=== PATIENT | female | born 1985 | race Caucasian/White ===

== ENCOUNTER 2017-08-06 03:55 | Emergency (ER) | payer BC, MEDICAID ==
[2017-08-06] MEDS ORDERED: NORMAL SALINE 1000 ML 1,000 ML IV ONE ×2 (04:11→04:19)
[2017-08-06] MEDS ORDERED: NORMAL SALINE 1000 ML 1,000 ML IV PRN (04:11)
[2017-08-06] MEDS ORDERED: KETOROLAC TROMETHAMINE INJ/PF 30 MG/1 ML SDV IV ONE (04:35)
[2017-08-06 04:54] LABS: ABSOLUTE LYMPHOCYTES (AUTO) 0.9 10^3/uL (0.5-4.7); ABSOLUTE MONOCYTES (AUTO) 0.2 10^3/uL (0.1-1.4); BASOPHILS % (AUTO) 0.6 % (0-2); EOSINOPHILS % (AUTO) 1.3 % (0-6); HEMATOCRIT 39.7 % (36.0-47.0); HEMOGLOBIN 13.3 g/dL (12.0-15.5); LYMPHOCYTES % (AUTO) 28.4 % (13-45); MEAN CORPUSCULAR HEMOGLOBIN 29.1 pg (27.0-33.4); MEAN CORPUSCULAR HGB CONC 33.5 g/dL (32.0-36.0); MEAN CORPUSCULAR VOLUME 87 fl (80-97); MONOCYTES % (AUTO) 7.4 % (3-13); PLATELET COUNT 157 10^3/uL (150-450); RED BLOOD COUNT 4.58 10^6/uL (3.72-5.28); RED CELL DISTRIBUTION WIDTH 13.5 % (11.5-14.0); SEGMENTED NEUTROPHILS % (AUTO) 62.3 % (42-78); TOTAL CELLS COUNTED % (AUTO) 100 %; VENOUS BLOOD BASE EXCESS 0.9 mmol/L; VENOUS BLOOD HCO3 26.6 mmol/L (20-32); VENOUS BLOOD PCO2 46.7 mmHg (35-63); VENOUS BLOOD PH 7.37 (7.30-7.42); WHITE BLOOD COUNT 3.2 10^3/uL (4.0-10.5)
[2017-08-06 05:22] LABS: ALANINE AMINOTRANSFERASE 89 U/L (9-52); ALBUMIN 4.4 g/dL (3.5-5.0); ALKALINE PHOSPHATASE 136 U/L (38-126); ANION GAP 12 (5-19); ASPARTATE AMINO TRANSFERASE 78 U/L (14-36); BILIRUBIN,DIRECT 0.1 mg/dL (0.0-0.4); BILIRUBIN,TOTAL 0.5 mg/dL (0.2-1.3); BLOOD UREA NITROGEN 11 mg/dL (7-20); CALCIUM 9.8 mg/dL (8.4-10.2); CARBON DIOXIDE 26 mmol/L (22-30); CHLORIDE 107 mmol/L (98-107); GLUCOSE 136 mg/dL (75-110); LIPASE 28.8 U/L (23-300); POTASSIUM 3.5 mmol/L (3.6-5.0); SODIUM 145.2 mmol/L (137-145); TOTAL PROTEIN 7.2 g/dL (6.3-8.2)
[2017-08-06 05:22] LABS: APPEARANCE,URINE CLOUDY; BILIRUBIN,URINE NEGATIVE (NEGATIVE); GLUCOSE, URINE 150 mg/dL (NEGATIVE); KETONES,URINE NEGATIVE (NEGATIVE); LEUKOCYTE ESTERASE,URINE LARGE (NEGATIVE); NITRITE,URINE NEGATIVE (NEGATIVE); PROTEIN,URINE 100 mg/dL (NEGATIVE); URINE SPECIFIC GRAVITY 1.028
[2017-08-06 05:27] LABS: COLOR,URINE DARK YELLOW
[2017-08-06] MEDS ORDERED: CEFTRIAXONE 1 GM/D5W RTU 1 GM/50 ML RTUPB IV ONE (05:48)
--- NOTE | 2017-08-06 05:59 | ER Document Report ---
ED General - General Chief Complaint: High Blood Sugar Stated Complaint: PAINFUL URINATION Time Seen by Provider: 08/06/17 04:11 TRAVEL OUTSIDE OF THE [place] IN LAST 30 DAYS: No - HPI Patient complains to provider of: Elevated blood sugars painful urination Notes: Patient coming in for elevated blood sugars painful urination. Patient states on insulin pump. Patient statesBlood sugars been spiking the 5-600 range last few days. Patient is see has not changed her regimen. Patient states that she thought initially had an issue of pump therefore will change pumps however continue to run high. Patient states started to have nausea along with dysuria therefore was concerned about possible DKA and underlying urinary tract infection which came into the ER for further evaluation. Upon my evaluation patient's Accu-Chek shows blood sugar less than 150. Patient resting comfortably no signs of significant pathology. Denies fevers chills vomiting denies any diarrhea recent travel denies any new medications. - Related Data Allergies/Adverse Reactions: No Known Allergies Allergy (Verified 09/06/15 19:40) Past Medical History - Social History Smoking Status: Never Smoker Frequency of alcohol use: None Family History: DM, Malignancy - thyroid Patient has suicidal ideation: No Patient has homicidal ideation: No Endocrine Medical History: Reports: Hx Diabetes Mellitus Type 1 Renal/ Medical History: Denies: Hx Peritoneal Dialysis Psychiatric Medical History: Reports: Hx Attention Deficit Hyperactivity Disorder Past Surgical History: Reports: Hx Appendectomy, Hx Section - x2, Hx Gynecologic Surgery - lap x2, Hx Oral Surgery, Hx Orthopedic Surgery - r foot, Hx Tonsillectomy - Immunizations Hx Diphtheria, Pertussis, Tetanus Vaccination: Yes Review of Systems - Review of Systems Constitutional: Other - Elevated blood sugars EENT: No symptoms reported Cardiovascular: No symptoms reported Respiratory: No symptoms reported Gastrointestinal: Nausea Genitourinary: No symptoms reported Female Genitourinary: No symptoms reported Musculoskeletal: No symptoms reported Skin: No symptoms reported Hematologic/Lymphatic: No symptoms reported Neurological/Psychological: No symptoms reported -: Yes All other systems reviewed and negative Physical Exam - Vital signs Vitals: Temp Pulse Resp BP Pulse Ox 97.7 F 131 H 18 120/81 99 08/06/17 04:02 08/06/17 04:02 08/06/17 04:02 08/06/17 04:02 08/06/17 04:02 Interpretation: Normal - General General appearance: Appears well, Alert - HEENT Head: Normocephalic, Atraumatic Eyes: Normal Pupils: PERRL - Respiratory Respiratory status: No respiratory distress Chest status: Nontender Breath sounds: Normal Chest palpation: Normal - Cardiovascular Rhythm: Regular Heart sounds: Normal auscultation Murmur: No - Abdominal Inspection: Normal Distension: No distension Bowel sounds: Normal Tenderness: Nontender Organomegaly: No organomegaly - Back Back: Normal, Nontender - Extremities General upper extremity: Normal inspection, Nontender, Normal color, Normal ROM , Normal temperature General lower extremity: Normal inspection, Nontender, Normal color, Normal ROM , Normal temperature, Normal weight bearing. No: Bharati's sign - Neurological Neuro grossly intact: Yes Cognition: Normal Orientation: AAOx4 [place] Coma Scale Eye Opening: Spontaneous [place] Coma Scale Verbal: Oriented [place] Coma Scale Motor: Obeys Commands [place] Coma Scale Total: 15 Speech: Normal Motor strength normal: LUE, RUE, LLE, RLE Sensory: Normal - Psychological Associated symptoms: Normal affect, Normal mood - Skin Skin Temperature: Warm Skin Moisture: Dry Skin Color: Normal Course - Re-evaluation Re-evalutation: 08/06/17 05:56 patient laboratory studies not show any signs of DKA. Patient's blood sugar is not severely elevated A1c is 10.8. Patient states that this is a decrease of 0.1 for her last A1c. Urinalysis does show signs of urinary tract infection patient will be given a dose of Rocephin will start the patient on Keflex patient is to follow-up with her supervisor marble PCP take medications as prescribed. Urine will be sent for culture. - Vital Signs Vital signs: Temp Pulse Resp BP Pulse Ox 97.7 F 131 H 17 116/79 100 08/06/17 04:02 08/06/17 04:02 08/06/17 05:01 08/06/17 05:00 08/06/17 05:01 - Laboratory Result Diagrams: 08/06/17 04:30 08/06/17 04:30 Laboratory results interpreted by me: 08/06/17 08/06/17 08/06/17 04:11 04:30 04:30 WBC 3.2 L Sodium 145.2 H Potassium 3.5 L Glucose 136 H POC Glucose 140 H Hemoglobin A1c % AST 78 H ALT 89 H Alkaline Phosphatase 136 H Urine Protein Urine Glucose (UA) Urine Blood Urine Urobilinogen Ur Leukocyte Esterase Urine Ascorbic Acid 08/06/17 08/06/17 04:30 04:45 WBC Sodium Potassium Glucose POC Glucose Hemoglobin A1c % 10.8 H AST ALT Alkaline Phosphatase Urine Protein 100 H Urine Glucose (UA) 150 H Urine Blood MODERATE H Urine Urobilinogen 4.0 H Ur Leukocyte Esterase LARGE H Urine Ascorbic Acid 20 H Discharge - Discharge Clinical Impression: Hyperglycemia UTI (urinary tract infection) Qualifiers: Urinary tract infection type: site unspecified Hematuria presence: without hematuria Qualified Code(s): N39.0 - Urinary tract infection, site not specified Condition: Good Disposition: HOME, SELF-CARE Instructions: Cephalexin ([facility]), Urinary Tract Infection ([facility]), Hyperglycemia ( [facility]) Additional Instructions: Please take antibiotics as prescribed. Please follow-up with your primary care physician and your supervisor marble for your blood sugars. Return to the ER for any complications. He may also take Tylenol Motrin for pain control. Prescriptions: Cephalexin Monohydrate [Keflex 500 mg Capsule] 500 mg PO QID 10 Days #40 capsule Referrals: GINETTE MURCIA FNP [Primary Care Provider] - Follow up in 1 week
[2017-08-06] MEDS ORDERED: CEFTRIAXONE INJ 1000 MG VIAL IV ONE (06:03)
[2017-08-06 07:05] VITALS: BP 113/93
== END 2017-08-06 07:00 | disposition home or self-care (01) ==
LOC: ER 03:55
DX: E10.65 Type 1 diabetes mellitus with hyperglycemia (principal); Z96.41 Presence of insulin pump (external) (internal); N39.0 Urinary tract infection, site not specified; R11.0 Nausea
CPT/HCPCS: 99285; 96361; 96375; 96365; 36415; 87086; 82962; 83690; 84703; 85025; 80053; 81001; 87186; 83036; 82803; J1885; J0696; J7030

== ENCOUNTER 2017-08-06 18:22 | Emergency (ER) | payer BC, MEDICAID ==
[2017-08-06] MEDS ORDERED: KETOROLAC TROMETHAMINE 60 MG/2 ML SDV IM ONE (19:04)
[2017-08-06 20:35] LABS: ABSOLUTE LYMPHOCYTES (AUTO) 0.8 10^3/uL (0.5-4.7); ABSOLUTE MONOCYTES (AUTO) 0.2 10^3/uL (0.1-1.4); ABSOLUTE NEUT (AUTO) 2.2 10^3/uL (1.7-8.2); BASOPHILS % (AUTO) 0.3 % (0-2); EOSINOPHILS % (AUTO) 0.8 % (0-6); HEMATOCRIT 39.9 % (36.0-47.0); HEMOGLOBIN 13.1 g/dL (12.0-15.5); LYMPHOCYTES % (AUTO) 24.5 % (13-45); MEAN CORPUSCULAR HEMOGLOBIN 28.9 pg (27.0-33.4); MEAN CORPUSCULAR HGB CONC 32.9 g/dL (32.0-36.0); MEAN CORPUSCULAR VOLUME 88 fl (80-97); MONOCYTES % (AUTO) 6.2 % (3-13); PLATELET COUNT 146 10^3/uL (150-450); RED BLOOD COUNT 4.54 10^6/uL (3.72-5.28); RED CELL DISTRIBUTION WIDTH 14.1 % (11.5-14.0); SEGMENTED NEUTROPHILS % (AUTO) 68.2 % (42-78); TOTAL CELLS COUNTED % (AUTO) 100 %; WHITE BLOOD COUNT 3.3 10^3/uL (4.0-10.5)
[2017-08-06 20:41] LABS: APPEARANCE,URINE SLIGHTLY-CLOUDY; BILIRUBIN,URINE NEGATIVE (NEGATIVE); COLOR,URINE YELLOW; GLUCOSE, URINE >=500 mg/dL (NEGATIVE); KETONES,URINE NEGATIVE (NEGATIVE); LEUKOCYTE ESTERASE,URINE TRACE (NEGATIVE); NITRITE,URINE NEGATIVE (NEGATIVE); PROTEIN,URINE NEGATIVE (NEGATIVE); URINE SPECIFIC GRAVITY 1.015
[2017-08-06 20:49] LABS: ALANINE AMINOTRANSFERASE 107 U/L (9-52); ALKALINE PHOSPHATASE 135 U/L (38-126); ANION GAP 12 (5-19); ASPARTATE AMINO TRANSFERASE 143 U/L (14-36); BILIRUBIN,DIRECT 0.1 mg/dL (0.0-0.4); BILIRUBIN,TOTAL 0.3 mg/dL (0.2-1.3); BLOOD UREA NITROGEN 9 mg/dL (7-20); CALCIUM 9.6 mg/dL (8.4-10.2); CARBON DIOXIDE 26 mmol/L (22-30); CHLORIDE 105 mmol/L (98-107); GLUCOSE 256 mg/dL (75-110); POTASSIUM 3.9 mmol/L (3.6-5.0); SODIUM 142.6 mmol/L (137-145); TOTAL PROTEIN 6.5 g/dL (6.3-8.2)
--- NOTE | 2017-08-06 21:41 | RADIOLOGY REPORT (SQ) ---
EXAM DESCRIPTION: CT LTD RENAL STONE PROTOCOL ON COMPLETED DATE/TIME: 08/06/2017 9:31 pm REASON FOR STUDY: flank pain 12/16/2012 COMPARISON: 12/16/2012 TECHNIQUE: CT scan of the abdomen and pelvis performed without intravenous or oral contrast. Images reviewed with lung, soft tissue, and bone windows. Reconstructed coronal and sagittal MPR images revi ewed. All images stored on PACS. All CT scanners at this facility use dose modulation, iterative reconstruction, and/or weight based d osing when appropriate to reduce radiation dose to as low as reasonably achievable (ALARA). [facility]: Dose Right [facility]: CareDose [facility]: Dose Right [facility]: Teradose 4D [facility]: [employer] RADIATION DOSE: CT Rad equipment meets quality standard of care and radiation dose reduction techniq ues were employed. CTDIvol: 9.0 mGy. DLP: 469 mGy-cm.mGy. LIMITATIONS: None. FINDINGS: LOWER CHEST: No significant findings. No nodules or infiltrates. NON-CONTRASTED LIVER, SPLEEN, ADRENALS: Evaluation limited by lack of IV contrast. No identified sign ificant masses. PANCREAS: No masses. No peripancreatic inflammatory changes. GALLBLADDER: No identified stones by CT criteria. No inflammatory changes to suggest cholecystitis. RIGHT KIDNEY AND URETER: No suspicious masses. Assessment limited by lack of IV contrast. No signif icant calcifications. No hydronephrosis or hydroureter. LEFT KIDNEY AND URETER: No suspicious masses. Assessment limited by lack of IV contrast. No signifi cant calcifications. No hydronephrosis or hydroureter. AORTA AND RETROPERITONEUM: No aneurysm. No retroperitoneal masses or adenopathy. BOWEL AND PERITONEAL CAVITY: No obvious masses or inflammatory changes. No free fluid. APPENDIX: Normal. PELVIS, BLADDER, AND ABDOMINAL WALL:No abnormal masses. No free fluid. Bladder normal. BONES: No significant findings. OTHER: No other significant finding. IMPRESSION: NO SIGNIFICANT OR ACUTE PROCESS IN THE ABDOMEN OR PELVIS. COMMENT: Quality ID # [id number]: Final reports with documentation of one or more dose reduction techniques (e.g., Automated exposure control, adjustment of the mA and/or kV according to patient size, use of iterative reconstruction technique) TECHNICAL DOCUMENTATION: JOB ID: [id number] [employer]- All Rights Reserved
[2017-08-06] MEDS ORDERED: CEFTRIAXONE INJ 1000 MG VIAL IM ONE (22:52)
[2017-08-06] MEDS ORDERED: LIDOCAINE 1% INJ-PF (10 MG/ML) 30 ML SDV INJ ONE (22:52)
[2017-08-06] MEDS ORDERED: ONDANSETRON ODT 4 MG TAB (6 TAB/ER DISP) PO PRN (22:53)
--- NOTE | 2017-08-06 22:54 | ER Document Report ---
ED General - General Chief Complaint: Urinary Problem Stated Complaint: ABDOMINAL PAIN Time Seen by Provider: 08/06/17 19:01 Notes: Patient is a 32-year-old female with a past medical history of insulin- dependent diabetes who presents with bilateral flank pain. Patient was seen approximately 24 hours ago in the emergency department and at that time diagnosed with a urinary tract infection based on urinalysis. Patient did receive a dose of IV ceftriaxone prior to discharge but has not yet filled the cephalexin prescription with which she was sent home. Patient states she became concerned when her symptoms went from dysuria and suprapubic pain to bilateral flank pain. She describes a dull, constant, aching pain to the bilateral flanks slightly worse than the right. Nothing improves or worsens that pain. She states this feels very similar to when she has had pyelonephritis in the past. She has not yet developed a fever, vomiting, or altered mental status. She reports that her blood sugars have been elevated at home but has not responded to boluses of insulin. She does not feel she is in diabetic ketoacidosis. She has not yet followed up with her primary care doctor regarding today's concerns. TRAVEL OUTSIDE OF THE [place] IN LAST 30 DAYS: No - Related Data Allergies/Adverse Reactions: No Known Allergies Allergy (Verified 08/06/17 18:23) Past Medical History - General Information source: Patient - Social History Smoking Status: Never Smoker Chew tobacco use (# tins/day): No Frequency of alcohol use: None Drug Abuse: None Lives with: Spouse/Significant other Family History: DM, Malignancy - thyroid Patient has suicidal ideation: No Patient has homicidal ideation: No Endocrine Medical History: Reports: Hx Diabetes Mellitus Type 1 Renal/ Medical History: Denies: Hx Peritoneal Dialysis Psychiatric Medical History: Reports: Hx Attention Deficit Hyperactivity Disorder Past Surgical History: Reports: Hx Appendectomy, Hx Section - x2, Hx Gynecologic Surgery - lap x2, Hx Oral Surgery, Hx Orthopedic Surgery - r foot, Hx Tonsillectomy - Immunizations Hx Diphtheria, Pertussis, Tetanus Vaccination: Yes Review of Systems - Review of Systems Notes: Constitutional: Negative for fever. HENT: Negative for sore throat. Eyes: Negative for visual changes. Cardiovascular: Negative for chest pain. Respiratory: Negative for shortness of breath. Gastrointestinal: Positive for bilateral flank pain Genitourinary: Positive for dysuria. Musculoskeletal: Negative for back pain. Skin: Negative for rash. Neurological: Negative for headaches, weakness or numbness. 10 point ROS negative except as marked above and in HPI. Physical Exam - Vital signs Vitals: Temp Pulse Resp BP Pulse Ox 98.7 F 107 H 16 111/73 100 08/06/17 18:45 08/06/17 18:45 08/06/17 18:45 08/06/17 18:45 08/06/17 18:45 Interpretation: Tachycardic Notes: PHYSICAL EXAMINATION: GENERAL: Well-appearing, well-nourished and in no acute distress. HEAD: Atraumatic, normocephalic. EYES: Pupils equal round and reactive to light, extraocular movements intact, sclera anicteric, conjunctiva are normal. ENT: nares patent, oropharynx clear without exudates. Moderately dry mucous membranes. NECK: Normal range of motion, supple without lymphadenopathy LUNGS: Breath sounds clear to auscultation bilaterally and equal. No wheezes rales or rhonchi. HEART: Regular rate and rhythm without murmurs ABDOMEN: Soft, nontender, normoactive bowel sounds. No guarding, no rebound. No masses appreciated. Bilateral CVA tenderness slightly worse on the right versus the left EXTREMITIES: Normal range of motion, no pitting or edema. No cyanosis. NEUROLOGICAL: No focal neurological deficits. Moves all extremities spontaneously and on command. PSYCH: Normal mood, normal affect. SKIN: Warm, Dry, normal turgor, no rashes or lesions noted. Course - Re-evaluation Re-evalutation: 08/06/17 22:52 Presentation is most consistent with acute pyelonephritis. Laboratories do demonstrate a large amount of white blood cells in the urine as well as bacteria. Patient has had constitutional symptoms at home as well but no fever. CVA tenderness is present on exam. The remainder laboratories are relatively unremarkable without evidence of renal dysfunction. No evidence of diabetic ketoacidosis. CT abdomen pelvis was obtained in triage for unclear reasons and is unremarkable. I do not suspect an acute appendicitis, biliary pathology, pancreatitis, intra-abdominal abscess, or tubo-ovarian abscess based on history and examination. Patient has been given a dose of ceftriaxone which is her second dose within the past 48 hours. She was prescribed cephalexin yesterday and I have encouraged her to fill this prescription as she has not yet done so and begin taking as prescribed. At this time will discharge with return precautions and follow-up recommendations. Verbal discharge instructions given a the bedside and opportunity for questions given. Medication warnings reviewed. Patient is in agreement with this plan and has verbalized understanding of return precautions and the need for primary care follow-up in the next 24-72 hours. - Vital Signs Vital signs: Temp Pulse Resp BP Pulse Ox 98.7 F 95 16 115/71 100 08/06/17 18:45 08/06/17 23:00 08/06/17 23:00 08/06/17 23:00 08/06/17 23:00 - Laboratory Result Diagrams: 08/06/17 20:15 08/06/17 20:15 Laboratory results interpreted by me: 08/06/17 08/06/17 08/06/17 20:15 20:15 20:15 WBC 3.3 L RDW 14.1 H Plt Count 146 L Glucose 256 H AST 143 H ALT 107 H Alkaline Phosphatase 135 H Urine Glucose (UA) >=500 H Urine Urobilinogen 2.0 H Ur Leukocyte Esterase TRACE H Urine Ascorbic Acid 20 H - Diagnostic Test Radiology reviewed: Reports reviewed Discharge - Discharge Clinical Impression: Pyelonephritis, Hyperglycemia Condition: Good Disposition: HOME, SELF-CARE Additional Instructions: You have been diagnosed with a condition called pyelonephritis which is an infection involving your kidneys and bladder. You have been given a dose of antibiotics here in the emergency department to help begin to treat this infection. Please take the antibiotics prescribed yesterday. Complete the course even if you feel better. Please return if you have persistent vomiting, pass out, have worsening pain, become unable to tolerate fluids, or have any other symptoms that are concerning to you. Please follow-up with your primary care physician in the next 24-48 hours. Referrals: GINETTE MURCIA FNP [Primary Care Provider] - Follow up as needed
[2017-08-06 23:55] VITALS: BP 115/71
== END 2017-08-06 23:30 | disposition home or self-care (01) ==
LOC: ER 18:22
DX: N12 Tubulo-interstitial nephritis, not specified as acute or chronic (principal); E10.65 Type 1 diabetes mellitus with hyperglycemia
CPT/HCPCS: 99284; 96372; 36415; 85025; 81025; 80053; 81001; 76380; J1885; J3490; J0696

== ENCOUNTER → 2017-11-13 | Outpatient (CLI) | payer MEDICAID ==
--- NOTE | 2017-11-13 14:14 | RADIOLOGY REPORT (SQ) ---
EXAM DESCRIPTION: CT ABD/PELVIS COMBO COMPLETED DATE/TIME: 11/13/2017 1:44 pm REASON FOR STUDY: R10.32 LEFT LOWER QUADRANT PAIN R10.32 LEFT LOWER QUADRANT PAIN COMPARISON: CT abdomen pelvis 08/06/2017, 12/15/2012 TECHNIQUE: CT scan of the abdomen and pelvis performed with and without intravenous contrast, and wi thout oral contrast. Contrasted imaging performed helical scanning technique and dynamic intravenous contrast injection. Images reviewed with lung, soft tissue, and bone windows. Reconstructed coronal a nd sagittal MPR images reviewed. Delayed images for evaluation of the urinary system also acquired. A ll images stored on PACS. All CT scanners at this facility use dose modulation, iterative reconstruction, and/or weight based d osing when appropriate to reduce radiation dose to as low as reasonably achievable (ALARA). [facility]: Dose Right [facility]: CareDose [facility]: Dose Right [facility]: Teradose 4D [facility]: [employer] CONTRAST TYPE AND DOSE: contrast/concentration: Isovue 370.00 mg/ml; Total Contrast Delivered: 79.0 ml; Total Saline Delivered: 68.0 ml RENAL FUNCTION: Creatinine 0.7 RADIATION DOSE: CT Rad equipment meets quality standard of care and radiation dose reduction techniq ues were employed. CTDIvol: 9.8 - 10.2 mGy. DLP: 1648 mGy-cm. . LIMITATIONS: None. FINDINGS: NON-CONTRASTED IMAGING: No significant renal or bladder calcifications. No other significa nt organ calcifications. POST-CONTRASTED IMAGING: LOWER CHEST: No significant findings. No nodules or infiltrates. LIVER: Normal size. No masses. No dilated ducts. SPLEEN: 14 cm in length, similar compared to 2012 PANCREAS: No masses. No significant calcifications. No adjacent inflammation or peripancreatic fluid collections. Pancreatic duct not dilated. GALLBLADDER: No identified stones by CT criteria. No inflammatory changes to suggest cholecystitis. ADRENAL GLANDS: No significant masses or asymmetry. RIGHT KIDNEY AND URETER: No solid masses. No significant calcifications. No hydronephrosis or hyd roureter. LEFT KIDNEY AND URETER: No solid masses. No significant calcifications. No hydronephrosis or hydr oureter. AORTA AND VESSELS: No aneurysm. No dissection. Renal arteries, SMA, celiac without stenosis. RETROPERITONEUM: No retroperitoneal adenopathy, hemorrhage or masses. BOWEL AND PERITONEAL CAVITY: No masses or inflammatory changes. No free fluid or peritoneal masses. APPENDIX: Surgically absent PELVIS: No mass. No free fluid. Normal bladder. Normal size uterus and ovaries ABDOMINAL WALL: No masses. No hernias. BONES: No significant or acute findings. OTHER: No other significant finding. IMPRESSION: No CT findings to explain history of left lower quadrant pain. TECHNICAL DOCUMENTATION: JOB ID: [id number] Quality ID # [id number]: Final reports with documentation of one or more dose reduction techniques (e.g., Au tomated exposure control, adjustment of the mA and/or kV according to patient size, use of iterative reconstruction technique) 2010 [employer]- All Rights Reserved Reading location - IP/workstation name: [email or web address]
== END ==
LOC: RAD 13:50
PROVIDERS: ATTEND Physician Assistant Medical
DX: R10.32 Left lower quadrant pain (principal)
CPT/HCPCS: 74178; 82565

== ENCOUNTER 2017-11-25 18:17 | Emergency (ER) | payer MEDICAID ==
--- NOTE | 2017-11-25 18:54 | ER Document Report ---
ED General - General Chief Complaint: Urinary Problem Stated Complaint: URINARY PROBLEMS Time Seen by Provider: 11/25/17 18:34 Mode of Arrival: Ambulatory Information source: Patient Notes: 32-year-old female presents with complaints of UTI-like symptoms for the past month. Patient notes initially she placed herself on Keflex took a course of this with minimal improvement saw her PCP who placed her on ciprofloxacin she notes she took 5 days worth symptoms improved so she stopped taking it, patient also noted to have bacterial vaginosis has just picked up the clindamycin gel TRAVEL OUTSIDE OF THE [place] IN LAST 30 DAYS: No - HPI Onset: Other - 1 month duration intermittent worsened over the past day Onset/Duration: Intermittent Quality of pain: Burning Severity: Mild Pain Level: 1 Associated symptoms: Other Exacerbated by: Denies Relieved by: Other - Clindamycin Similar symptoms previously: Yes Recently seen / treated by doctor: Yes - Related Data Allergies/Adverse Reactions: No Known Allergies Allergy (Verified 11/25/17 18:44) Past Medical History - General Last Menstrual Period: 11-20-2017 - Social History Smoking Status: Never Smoker Cigarette use (# per day): No Chew tobacco use (# tins/day): No Smoking Education Provided: No Frequency of alcohol use: None Drug Abuse: None Family History: DM, Malignancy Patient has suicidal ideation: No Patient has homicidal ideation: No Endocrine Medical History: Reports: Hx Diabetes Mellitus Type 1 Renal/ Medical History: Denies: Hx Peritoneal Dialysis Psychiatric Medical History: Reports: Hx Attention Deficit Hyperactivity Disorder Past Surgical History: Reports: Hx Appendectomy, Hx Section - x2, Hx Gynecologic Surgery - lap x2, Hx Oral Surgery, Hx Orthopedic Surgery - r foot, Hx Tonsillectomy - Immunizations Hx Diphtheria, Pertussis, Tetanus Vaccination: Yes Review of Systems - Review of Systems Notes: REVIEW OF SYSTEMS: CONSTITUTIONAL : Denies fever, chills, or sweats. Denies recent illness. EENT: Denies eye, ear, throat, or mouth pain or symptoms. Denies nasal or sinus congestion or discharge. Denies throat, tongue, or mouth swelling or difficulty swallowing. CARDIOVASCULAR: Denies chest pain. Denies palpitations or racing or irregular heart beat. Denies ankle edema. RESPIRATORY: Denies cough, cold, or chest congestion. Denies shortness of breath, difficulty breathing, or wheezing. GASTROINTESTINAL: Denies abdominal pain or distention. Denies nausea, vomiting , or diarrhea. Denies blood in vomitus, stools, or per rectum. Denies black, tarry stools. Denies constipation. GENITOURINARY: Admits to difficulty urinating burning on urination red colorization FEMALE GENITOURINARY: Denies vaginal bleeding, heavy or abnormal periods, irregular periods. Denies vaginal discharge or odor. MUSCULOSKELETAL: Denies back or neck pain or stiffness. Denies joint pain or swelling. SKIN: Denies rash, lesions or sores. HEMATOLOGIC : Denies easy bruising or bleeding. LYMPHATIC: Denies swollen, enlarged glands. NEUROLOGICAL: Denies confusion or altered mental status. Denies passing out or loss of consciousness. Denies dizziness or lightheadedness. Denies headache. Denies weakness or paralysis or loss of use of either side. Denies problems with gait or speech. Denies sensory loss, numbness, or tingling. Denies seizures. PSYCHIATRIC: Denies anxiety or stress. Denies depression, suicidal ideation, or homicidal ideation. ALL OTHER SYSTEMS REVIEWED AND NEGATIVE. PHYSICAL EXAMINATION: GENERAL: Well-appearing, well-nourished and in no acute distress. HEAD: Atraumatic, normocephalic. EYES: Pupils equal round and reactive to light, extraocular movements intact, conjunctiva are normal. ENT: Nares patent, oropharynx clear without exudates. Moist mucous membranes. NECK: Normal range of motion, supple without lymphadenopathy LUNGS: Breath sounds clear to auscultation bilaterally and equal. No wheezes rales or rhonchi. HEART: Regular rate and rhythm without murmurs ABDOMEN: Soft, suprapubic tenderness upon palpation Female : deferred Musculoskeletal: Normal range of motion, no pitting or edema. No cyanosis. NEUROLOGICAL: Cranial nerves grossly intact. Normal speech, normal gait. Normal sensory, motor exams PSYCH: Normal mood, normal affect. SKIN: Warm, Dry, normal turgor, no rashes or lesions noted. Dictation was performed using [employer] voice recognition software Physical Exam - Vital signs Vitals: Temp Pulse Resp BP Pulse Ox 98.2 F 100 18 115/69 98 11/25/17 18:20 11/25/17 18:20 11/25/17 18:20 11/25/17 18:20 11/25/17 18:20 Course - Re-evaluation Re-evalutation: 11/25/17 18:55 Patient has probable UTI lab work pending she overall looks quite well the 11/25/17 19:33 Patient has pyelonephritis, continue taking the ciprofloxacin and I will start her on Macrobid as she has already taken Keflex 11/25/17 19:36 Patient overall looks well is in no significant distress will discharge home with extremely close follow-up and culture results After performing a Medical Screening Examination, I estimate there is LOW risk for ACUTE APPENDICITIS, BOWEL OBSTRUCTION, ACUTE CHOLECYSTITIS, PERFORATED DIVERTICULITIS, INCARCERATED HERNIA, PANCREATITIS, PELVIC INFLAMMATORY DISEASE, PERFORATED ULCER, ECTOPIC , or TUBO-OVARIAN ABSCESS, thus I consider the discharge disposition reasonable. Also, there is no evidence or peritonitis , sepsis, or toxicity. I have reevaluated this patient multiple times and no significant life threatening changes are noted. The patient and I have discussed the diagnosis and risks, and we agree with discharging home with close follow-up with the understanding that symptoms and presentations can change. We also discussed returning to the Emergency Department immediately if new or worsening symptoms occur. We have discussed the symptoms which are most concerning (e.g., bloody stool, fever, changing or worsening pain, vomiting) that necessitate immediate return. - Vital Signs Vital signs: Temp Pulse Resp BP Pulse Ox 98.2 F 100 18 115/69 98 11/25/17 18:20 11/25/17 18:20 11/25/17 18:20 11/25/17 18:20 11/25/17 18:20 - Laboratory Result Diagrams: 11/25/17 19:00 11/25/17 19:00 Laboratory results interpreted by me: 11/25/17 11/25/17 19:00 19:00 Plt Count 145 L Urine Protein >=500 H Urine Glucose (UA) 50 H Urine Ketones TRACE H Urine Blood LARGE H Urine Nitrite POSITIVE H Urine Urobilinogen 4.0 H Discharge - Discharge Clinical Impression: Pyelonephritis Condition: Stable Disposition: HOME, SELF-CARE Instructions: Pyelonephritis ([facility]) Prescriptions: Hydrocodone/Acetaminophen [[place] 5-325 mg Tablet] 1 tab PO Q6 #10 tablet Sulfamethoxazole/Trimethoprim [Bactrim Ds Tablet] 1 each PO BID #20 tablet Referrals: FRANKY HOANG PA-C [Primary Care Provider] - Follow up as needed
[2017-11-25 19:16] LABS: ABSOLUTE LYMPHOCYTES (AUTO) 0.8 10^3/uL (0.5-4.7); ABSOLUTE MONOCYTES (AUTO) 0.3 10^3/uL (0.1-1.4); ABSOLUTE NEUT (AUTO) 3.7 10^3/uL (1.7-8.2); BASOPHILS % (AUTO) 0.3 % (0-2); HEMATOCRIT 40.9 % (36.0-47.0); HEMOGLOBIN 13.8 g/dL (12.0-15.5); LYMPHOCYTES % (AUTO) 16.4 % (13-45); MEAN CORPUSCULAR HEMOGLOBIN 29.1 pg (27.0-33.4); MEAN CORPUSCULAR HGB CONC 33.7 g/dL (32.0-36.0); MEAN CORPUSCULAR VOLUME 86 fl (80-97); MONOCYTES % (AUTO) 5.6 % (3-13); PLATELET COUNT 145 10^3/uL (150-450); RED BLOOD COUNT 4.73 10^6/uL (3.72-5.28); SEGMENTED NEUTROPHILS % (AUTO) 76.7 % (42-78); TOTAL CELLS COUNTED % (AUTO) 100 %; WHITE BLOOD COUNT 4.8 10^3/uL (4.0-10.5)
[2017-11-25 19:23] LABS: APPEARANCE,URINE TURBID; BILIRUBIN,URINE NEGATIVE (NEGATIVE); GLUCOSE, URINE 50 mg/dL (NEGATIVE); KETONES,URINE TRACE mg/dL (NEGATIVE); LEUKOCYTE ESTERASE,URINE NEGATIVE (NEGATIVE); NITRITE,URINE POSITIVE (NEGATIVE); PROTEIN,URINE >=500 mg/dL (NEGATIVE); URINE SPECIFIC GRAVITY 1.033
[2017-11-25 19:27] LABS: COLOR,URINE ORANGE
[2017-11-25 19:33] LABS: ALANINE AMINOTRANSFERASE 41 U/L (9-52); ALBUMIN 3.9 g/dL (3.5-5.0); ALKALINE PHOSPHATASE 107 U/L (38-126); ANION GAP 8 (5-19); ASPARTATE AMINO TRANSFERASE 38 U/L (14-36); BILIRUBIN,TOTAL 0.9 mg/dL (0.2-1.3); BLOOD UREA NITROGEN 13 mg/dL (7-20); CALCIUM 9.6 mg/dL (8.4-10.2); CARBON DIOXIDE 29 mmol/L (22-30); CHLORIDE 104 mmol/L (98-107); GLUCOSE 195 mg/dL (75-110); POTASSIUM 4.1 mmol/L (3.6-5.0); SODIUM 140.8 mmol/L (137-145)
[2017-11-25 19:44] VITALS: BP 109/71
== END 2017-11-25 19:44 | disposition home or self-care (01) ==
LOC: ER 18:17
DX: N12 Tubulo-interstitial nephritis, not specified as acute or chronic (principal); N76.0 Acute vaginitis; B96.89 Other specified bacterial agents as the cause of diseases classified elsewhere; E10.9 Type 1 diabetes mellitus without complications
CPT/HCPCS: 36415; 80053; 81001; 81025; 85025; 87086; 99283

== ENCOUNTER 2017-12-23 02:20 | Emergency (ER) | payer MEDICAID ==
[2017-12-23 03:40] LABS: APPEARANCE,URINE SLIGHTLY-CLOUDY; BILIRUBIN,URINE NEGATIVE (NEGATIVE); COLOR,URINE AMBER; GLUCOSE, URINE 50 mg/dL (NEGATIVE); KETONES,URINE NEGATIVE (NEGATIVE); LEUKOCYTE ESTERASE,URINE NEGATIVE (NEGATIVE); NITRITE,URINE NEGATIVE (NEGATIVE); PROTEIN,URINE 30 mg/dL (NEGATIVE); URINE SPECIFIC GRAVITY 1.024
--- NOTE | 2017-12-23 03:50 | ER Document Report ---
ED GI/ - General Chief Complaint: Abdominal Pain Stated Complaint: ABDOMINAL, BACK PAIN Time Seen by Provider: 12/23/17 02:38 Notes: The patient is a 32-year-old female, past medical history prior episodes of left lower quadrant abdominal pain without etiology, presents with left lower quadrant abdominal pain after she said a resident at work accidentally hit her in the lower abdomen. Patient also frequently has urinary tract infections and is on Macrobid. She denies flank pain, nausea, vomiting, diarrhea, constipation , dysuria, vaginal discharge or back pain. TRAVEL OUTSIDE OF THE [place] IN LAST 30 DAYS: No - Related Data Allergies/Adverse Reactions: No Known Allergies Allergy (Verified 11/25/17 18:44) Past Medical History - General Information source: Patient - Social History Smoking Status: Unknown if Ever Smoked Family History: DM, Malignancy Endocrine Medical History: Reports: Hx Diabetes Mellitus Type 1 Renal/ Medical History: Denies: Hx Peritoneal Dialysis Psychiatric Medical History: Reports: Hx Attention Deficit Hyperactivity Disorder Past Surgical History: Reports: Hx Appendectomy, Hx Section - x2, Hx Gynecologic Surgery - lap x2, Hx Oral Surgery, Hx Orthopedic Surgery - r foot, Hx Tonsillectomy - Immunizations Hx Diphtheria, Pertussis, Tetanus Vaccination: Yes Review of Systems - Review of Systems Notes: REVIEW OF SYSTEMS: CONSTITUTIONAL: -fevers, -chills EENT: -eye pain, -difficulty swallowing, -nasal congestion CARDIOVASCULAR: -chest pain, -syncope. RESPIRATORY: -cough, -SOB GASTROINTESTINAL: +LLQ abdominal pain, -nausea, -vomiting, -diarrhea GENITOURINARY: -dysuria, -hematuria MUSCULOSKELETAL: -back pain, -neck pain SKIN: -rash or skin lesions. HEMATOLOGIC: -easy bruising or bleeding. LYMPHATIC: -swollen, enlarged glands. NEUROLOGICAL: -altered mental status or loss of consciousness, -headache, - neurologic symptoms PSYCHIATRIC: -anxiety, -depression. ALL OTHER SYSTEMS REVIEWED AND NEGATIVE. Physical Exam - Vital signs Vitals: Temp Pulse Resp BP Pulse Ox 98 F 99 18 112/72 99 12/23/17 02:25 12/23/17 02:25 12/23/17 02:25 12/23/17 02:25 12/23/17 02:25 - Notes Notes: PHYSICAL EXAMINATION: GENERAL: Well-appearing, well-nourished and in no acute distress. HEAD: Atraumatic, normocephalic. EYES: Pupils equal round and reactive to light, extraocular movements intact, sclera anicteric, conjunctiva are normal. ENT: nares patent, oropharynx clear without exudates. Moist mucous membranes. NECK: Normal range of motion, supple without lymphadenopathy LUNGS: Breath sounds clear to auscultation bilaterally and equal. No wheezes rales or rhonchi. HEART: Regular rate and rhythm without murmurs ABDOMEN: Soft, mild LLQ tenderness, normoactive bowel sounds. No guarding, no rebound. No masses appreciated. EXTREMITIES: Normal range of motion, no pitting or edema. No cyanosis. NEUROLOGICAL: Cranial nerves grossly intact. Normal speech, normal gait. Normal sensory and motor exams. PSYCH: Normal mood, normal affect. SKIN: Warm, Dry, normal turgor, no rashes or lesions noted. Course - Re-evaluation Re-evalutation: Patient appears well. A bedside FAST does not reveal any free fluid in her abdomen. Her urinalysis does not show signs of a urinary tract infection. Suspect an abdominal wall contusion from a work injury. Instructed her about using anti-inflammatories, heating pads and ice packs. Given very strict return precautions and she understands. - Vital Signs Vital signs: Temp Pulse Resp BP Pulse Ox 98 F 99 18 112/72 99 12/23/17 02:25 12/23/17 02:25 12/23/17 02:25 12/23/17 02:25 12/23/17 02:25 - Laboratory Laboratory results interpreted by me: 12/23/17 03:07 Urine Protein 30 H Urine Glucose (UA) 50 H Urine Blood SMALL H Urine Urobilinogen 4.0 H Discharge - Discharge Clinical Impression: Abdominal pain, left lower quadrant Abdominal contusion Qualifiers: Encounter type: initial encounter Qualified Code(s): S30.1XXA - Contusion of abdominal wall, initial encounter Condition: Stable Disposition: HOME, SELF-CARE Additional Instructions: ABDOMINAL PAIN: There are many causes of abdominal pain. Pain can mean a serious problem requiring surgery (such as appendicitis). It can also be an innocent problem that goes away on its own (such as a viral infection). Often, time must pass to determine the cause of pain. The physician does not feel that hospitalization is necessary, at present. Things may change within the next 24 hours. Call the doctor or come back for re- examination if any problems occur, such as: (1) Pain that becomes more severe, steady, or becomes concentrated in one specific area. Also, pain that is more severe with movement or coughing. (2) Vomiting that persists or becomes more frequent. (3) Blood in the vomitus, urine, or bowel movements. Blood in the stool may have a tarry or black appearance. (4) Shaking chills or fever greater than 100 degrees F. (5) The abdomen becomes more distended or swollen. (6) Bowel movements cease. (7) Failure to improve as expected. NORMAL EXAM AND WORKUP: At this time, your examination and workup show no significant abnormality. No significant abnormal physical findings are noted. All laboratory, EKG, and imaging (x-ray, CT scans, ultrasound) studies that were ordered show no significant abnormality. Although your examination and all studies that were ordered showed no significant abnormal finding, there are no examinations and no studies that are 100% accurate. There is always the possibility that some abnormality could exist and not be detected with physical examination or within the limits and capabilities of laboratory and other studies. You should return or follow up as you were instructed on your visit today for further evaluation if your symptoms do not resolve. FOLLOW-UP CARE: If you have been referred to a physician for follow-up care, call the physician s office for an appointment as you were instructed or within the next two days. If you experience worsening or a significant change in your symptoms, notify the physician immediately or return to the Emergency Department at any time for re-evaluation. FOLLOW-UP CARE: You should return for re-evaluation in 12 hours. This follow-up visit is important. If you are unable to return, or feel that the return visit is unnecessary, please call us. Contusion Your injury has resulted in a contusion -- a crushing of the deep tissues. No injury to important structures was detected during the physician's exam. Contusions vary in the amount of pain they cause, and in the length of time required for healing. Typically, the area will become bruised, and will remain painful to touch for two or three weeks. However, most patients are back to working and playing within a few days. After the initial period of rest and cold-packs, your symptoms (together with the doctor's recommendations) will determine how rapidly you can get back to full activity. Usually this means "do what feels okay, but don't do things that hurt." If re-examination was recommended, it's important to follow up as instructed. Call the doctor or return any time if pain increases, if swelling becomes severe, if you develop numbness or weakness in an injured extremity, or if any other alarming symptoms occur. Referrals: FRANKY HOANG PA-C [Primary Care Provider] - Follow up as needed
[2017-12-23 04:39] VITALS: BP 120/76
== END 2017-12-23 04:30 | disposition home or self-care (01) ==
LOC: ER 02:20
DX: S30.1XXA Contusion of abdominal wall, initial encounter (principal); W50.0XXA Accidental hit or strike by another person, initial encounter; Y92.129 Unspecified place in nursing home as the place of occurrence of the external cause; Y99.0 Civilian activity done for income or pay; E10.9 Type 1 diabetes mellitus without complications; Z87.440 Personal history of urinary (tract) infections
CPT/HCPCS: 81001; 81025; 99284

== ENCOUNTER 2018-02-02 12:51 | Emergency (ER) | payer MEDICAID ==
[2018-02-02 15:34] LABS: APPEARANCE,URINE SLIGHTLY-CLOUDY; BILIRUBIN,URINE NEGATIVE (NEGATIVE); COLOR,URINE AMBER; GLUCOSE, URINE NEGATIVE (NEGATIVE); KETONES,URINE NEGATIVE (NEGATIVE); LEUKOCYTE ESTERASE,URINE NEGATIVE (NEGATIVE); NITRITE,URINE POSITIVE (NEGATIVE); PROTEIN,URINE 100 mg/dL (NEGATIVE); URINE SPECIFIC GRAVITY 1.024
[2018-02-02] MEDS ORDERED: SULFAMETHOXAZOLE/TRIMETHOPRIM 800-160 MG TABLET PO ONE (16:32)
--- NOTE | 2018-02-02 16:33 | ER Document Report ---
ED General - General Chief Complaint: Urinary Problem Stated Complaint: BLOOD IN URINE Time Seen by Provider: 02/02/18 14:32 Mode of Arrival: Ambulatory Information source: Patient TRAVEL OUTSIDE OF THE [place] IN LAST 30 DAYS: No - HPI Notes: Patient is a 32-year-old female history of insulin-dependent diabetes presents with report of dysuria urgency and frequency that the patient's had for the last 3 days. She states that 3 days ago she had a negative urine specimen at her regular practitioner's office. She reports occasional nausea but no vomiting. She states her sugar was 315 this morning. The patient reports last menstrual period started on 01/30/18 and she is just now getting a small amount of vaginal bleeding. The patient reports a chronic long-standing history of pelvic pain left greater than right and she had a negative CT scan for the same on 11/13/17. 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 The patient reports no fever or chills. She denies any vomiting. No other vaginal discharge. No concern for STD. No significant back pain. No cough or congestion or chest pain. No other abnormal bleeding or bruising. - Related Data Allergies/Adverse Reactions: No Known Allergies Allergy (Verified 02/02/18 14:25) Past Medical History - General Information source: Patient - Social History Smoking Status: Never Smoker Chew tobacco use (# tins/day): No Frequency of alcohol use: Occasional Drug Abuse: None Lives with: Family Family History: Reviewed & Not Pertinent, DM, Malignancy Patient has suicidal ideation: No Patient has homicidal ideation: No Endocrine Medical History: Reports: Hx Diabetes Mellitus Type 1 Renal/ Medical History: Denies: Hx Peritoneal Dialysis Psychiatric Medical History: Reports: Hx Attention Deficit Hyperactivity Disorder Past Surgical History: Reports: Hx Appendectomy, Hx Section - x2, Hx Gynecologic Surgery - lap x2, Hx Oral Surgery, Hx Orthopedic Surgery - r foot, Hx Tonsillectomy - Immunizations Hx Diphtheria, Pertussis, Tetanus Vaccination: Yes Review of Systems - Review of Systems -: Yes All other systems reviewed and negative Physical Exam - Vital signs Vitals: Temp Pulse Resp BP Pulse Ox 98.1 F 104 H 18 114/71 98 02/02/18 13:02 02/02/18 13:02 02/02/18 13:02 02/02/18 13:02 02/02/18 13:02 - Notes Notes: PHYSICAL EXAMINATION: GENERAL: Well-appearing, well-nourished and in no acute distress. HEAD: Atraumatic, normocephalic. EYES: Pupils equal round and reactive to light, extraocular movements intact, conjunctiva are normal. ENT: Nares patent, oropharynx clear without exudates. Moist mucous membranes. NECK: Normal range of motion, supple without lymphadenopathy LUNGS: Breath sounds clear to auscultation bilaterally and equal. No wheezes rales or rhonchi. HEART: Regular rate and rhythm without murmurs ABDOMEN: Soft, nondistended abdomen. No guarding, no rebound. No masses appreciated. Very minimal suprapubic discomfort left slightly greater than right which patient states is chronic, but may be worse when she gets a UTI similar to today. Female : deferred Musculoskeletal: Normal range of motion, no pitting or edema. No cyanosis. NEUROLOGICAL: Cranial nerves grossly intact. Normal speech, normal gait. Normal sensory, motor exams PSYCH: Normal mood, normal affect. SKIN: Warm, Dry, normal turgor, no rashes or lesions noted. Course - Re-evaluation Re-evalutation: 02/02/18 16:31 Urinalysis was positive for UTI. Patient was given Bactrim by mouth. There is no clinical suggestion for pyelonephritis with no CVA tenderness. There is no evidence for ketosis or diabetic complication with a blood sugar of 115 there is no evidence for . - Vital Signs Vital signs: Temp Pulse Resp BP Pulse Ox 98.1 F 104 H 18 114/71 98 02/02/18 13:02 02/02/18 13:02 02/02/18 13:02 02/02/18 13:02 02/02/18 13:02 - Laboratory Laboratory results interpreted by id: 02/02/18 02/02/18 14:50 15:05 POC Glucose 115 H Urine Protein 100 H Urine Blood MODERATE H Urine Nitrite POSITIVE H Urine Urobilinogen 4.0 H Discharge - Discharge Clinical Impression: Urinary tract infection Qualifiers: Urinary tract infection type: acute cystitis Hematuria presence: with hematuria Qualified Code(s): N30.01 - Acute cystitis with hematuria Condition: Stable Disposition: HOME, SELF-CARE Instructions: Trimethoprim-Sulfa ([facility]), Urinary Tract Infection ([facility]) Additional Instructions: Drink plenty of fluids. Watch her blood sugars closely. Return to the emergency department in case of high fever, vomiting or severe pain. Prescriptions: Ondansetron [Zofran Odt 4 mg Tablet] 1 tab PO Q8HP PRN #10 tab.rapdis PRN Reason: For Nausea/Vomiting Phenazopyridine HCl [Pyridium 200 mg Tablet] 200 mg PO TID #15 tablet Sulfamethoxazole/Trimethoprim [Bactrim Ds Tablet] 1 each PO BID #16 tablet Forms: Return to Work Referrals: FRANKY HOANG PA-C [Primary Care Provider] - Follow up as needed
[2018-02-02 16:46] VITALS: BP 105/61
[2018-02-02 16:47] LABS: CHLAM PCR NOT DETECTED (NOT DETECT); GON PCR NOT DETECTED (NOT DETECT)
== END 2018-02-02 16:49 | disposition home or self-care (01) ==
LOC: ER 12:51
DX: N30.01 Acute cystitis with hematuria (principal); E10.9 Type 1 diabetes mellitus without complications; R11.0 Nausea; R10.2 Pelvic and perineal pain
CPT/HCPCS: 99283; 82962; 81025; 81001; 87491; 87591; J3490

== ENCOUNTER 2018-03-24 17:00 | Emergency (ER) | payer BC, MEDICAID ==
[2018-03-24 17:05] VITALS: BP 122/75
[2018-03-24] MEDS ORDERED: AMOXICILLIN TR/POT CLAVULANATE 500-125 MG TAB PO ONE (17:41)
[2018-03-24] MEDS ORDERED: DIPH/PERTUSS(ACELL)/TETANUS VAC/PF 0.5 ML SYR (>=10YO) IM ONE (17:42)
--- NOTE | 2018-03-24 17:45 | ER Document Report ---
HPI - HPI Patient complains to provider of: Puncture wound to toe Onset: Other - For 5 days ago Onset/Duration: Worse Quality of pain: Achy Pain Level: 2 Context: Patient states that her dog stepped on her foot about 4 5 days ago when she developed a puncture wound. Patient complains of increased tenderness to the area and concerns about infection. Patient is a diabetic. Associated Symptoms: Other - Puncture wound to foot Exacerbated by: Standing, Movement, Walking Relieved by: Denies Similar symptoms previously: No Recently seen / treated by doctor: No - ROS ROS below otherwise negative: Yes Systems Reviewed and Negative: Yes All other systems reviewed and negative - CONSTITUTIONAL Constitutional: DENIES: Fever - REPRODUCTIVE Reproductive: DENIES: : - MUSCULOSKELETAL Musculoskeletal: REPORTS: Extremity pain. 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 Lives with: Family Family History: Reviewed & Not Pertinent, DM, Malignancy Endocrine Medical History: Reports: Hx Diabetes Mellitus Type 1 Renal/ Medical History: Denies: Hx Peritoneal Dialysis Psychiatric Medical History: Reports: Hx Attention Deficit Hyperactivity Disorder Past Surgical History: Reports: Hx Appendectomy, Hx Section - x2, Hx Gynecologic Surgery - lap x2, Hx Oral Surgery, Hx Orthopedic Surgery - r foot, Hx Tonsillectomy - Immunizations Hx Diphtheria, Pertussis, Tetanus Vaccination: Yes Vertical Provider Document - CONSTITUTIONAL Agree With Documented VS: Yes Exam Limitations: No Limitations General Appearance: WD/WN, No Apparent Distress - INFECTION CONTROL TRAVEL OUTSIDE OF THE [place] IN LAST 30 DAYS: No - HEENT HEENT: Atraumatic - NECK Neck: Normal Inspection - RESPIRATORY Respiratory: No Respiratory Distress - CARDIOVASCULAR Pulses: Normal: Dorsalis pedis - MUSCULOSKELETAL/EXTREMETIES Musculoskeletal/Extremeties: MAEW - NEURO Level of Consciousness: Awake, Alert, Appropriate Motor/Sensory: No Motor Deficit - DERM Integumentary: Warm, Dry Notes: Patient with puncture wound to the dorsal aspect of left foot between first and second toes area tender to touch Course - Vital Signs Vital signs: Temp Pulse Resp BP Pulse Ox 97.5 F 92 16 122/75 99 03/24/18 17:04 03/24/18 17:04 03/24/18 17:04 03/24/18 17:04 03/24/18 17:04 Discharge - Discharge Clinical Impression: Puncture wound of foot Qualifiers: Encounter type: sequela Laterality: left Qualified Code(s): S91.332S - Puncture wound without foreign body, left foot, sequela Condition: Stable Disposition: HOME, SELF-CARE Instructions: Augmentin ([facility]), Puncture Wound ([facility]), Tetanus Immunization Given ([facility]) Additional Instructions: Return immediately for any new or worsening symptoms Followup with your primary care provider, call tomorrow to make a followup appointment Keep wound clean and covered while it continues to heal Prescriptions: Amox Tr/Potassium Clavulanate [Augmentin 875-125 Tablet] 1 tab PO BID 10 Days tablet Forms: Return to Work Referrals: GINETTE MURCIA FNP [NURSE PRACTITIONER] - Follow up as needed
== END 2018-03-24 18:22 | disposition home or self-care (01) ==
LOC: ER 17:00
DX: S91.332A Puncture wound without foreign body, left foot, initial encounter (principal); W54.1XXA Struck by dog, initial encounter; E10.9 Type 1 diabetes mellitus without complications
CPT/HCPCS: 99283; 90471; 90715; J3490

== ENCOUNTER 2018-03-25 13:47 | Emergency (ER) | payer MEDICAID ==
[2018-03-25] MEDS ORDERED: AMOXICILLIN TR/POT CLAVULANATE 500-125 MG TAB PO ONE ×2 (14:53→16:12)
[2018-03-25] MEDS ORDERED: PROMETHAZINE HCL 25 MG TABLET PO ONE (14:53)
--- NOTE | 2018-03-25 14:53 | ER Document Report ---
ED Medical Screen (RME) - General Chief Complaint: Knee Injury Stated Complaint: LEFT KNEE PAIN, NAUSEA Time Seen by Provider: 03/25/18 14:42 Mode of Arrival: Ambulatory Information source: Patient Notes: 32-year-old female with a history of insulin requiring diabetes who presents to the emergency room with left knee pain for months. Patient states that the knee pain is been getting worse. She also reports that she was seen yesterday for dog bite on the foot and was started on Augmentin. She reports she took yesterday's dose but is unable to get the prescription today. TRAVEL OUTSIDE OF THE [place] IN LAST 30 DAYS: No - HPI Onset: Last week Onset/Duration: Gradual Quality of pain: Dull Severity: Moderate Pain Level: 2 Associated Symptoms: denies: Chest pain, Fever, Shortness of breath Exacerbated by: Movement Relieved by: Denies Similar symptoms previously: Yes Recently seen / treated by doctor: Yes - Related Data Smoking: Non-smoker Frequency of alcohol use: None Drug Abuse: None Allergies/Adverse Reactions: No Known Allergies Allergy (Verified 03/25/18 13:58) Past Medical History - General Information source: Patient - Social History Cigarette use (# per day): No Chew tobacco use (# tins/day): No Frequency of alcohol use: None Drug Abuse: None Lives with: Family Family history: None - Past Medical History Cardiac Medical History: Reports: None Pulmonary Medical History: Reports: None Neurological Medical History: Reports: None Endocrine Medical History: Reports: Hx Diabetes Mellitus Type 1 Renal/ Medical History: Denies: Hx Peritoneal Dialysis Malignancy Medical History: Reports: None GI Medical History: Reports: None Musculoskeltal Medical History: Reports Hx Arthritis Psychiatric Medical History: Reports: Hx Attention Deficit Hyperactivity Disorder Past Surgical History: Reports: Hx Appendectomy, Hx Section - x2, Hx Gynecologic Surgery - lap x2, Hx Oral Surgery, Hx Orthopedic Surgery - r foot, Hx Tonsillectomy - Immunizations Hx Diphtheria, Pertussis, Tetanus Vaccination: Yes Review of Systems - Review of Systems Constitutional: denies: Chills, Fever EENT: No symptoms reported Cardiovascular: No symptoms reported Respiratory: No symptoms reported Gastrointestinal: No symptoms reported Genitourinary: No symptoms reported Female Genitourinary: No symptoms reported Musculoskeletal: See HPI Skin: No symptoms reported Hematologic/Lymphatic: No symptoms reported Neurological/Psychological: No symptoms reported Physical Exam - Vital signs Vitals: Temp Pulse Resp BP Pulse Ox 98.4 F 93 16 109/73 98 03/25/18 13:59 03/25/18 13:59 03/25/18 13:59 03/25/18 13:59 03/25/18 13:59 Notes: Physical exam: GENERAL: Patient is alert and oriented x3, no acute distress HEAD: Atraumatic, normocephalic. EYES: Pupils equal round and reactive to light, extraocular movements intact, sclera anicteric, conjunctiva are normal. ENT: Oropharynx clear without exudates. Moist mucous membranes. NECK: Normal range of motion, supple without obvious mass LUNGS: Breath sounds clear to auscultation bilaterally and equal. No wheezes rales or rhonchi. HEART: Regular rate and rhythm without murmurs, rubs or gallops. EXTREMITIES: Normal range of motion, no pitting or edema. No clubbing or cyanosis. NEUROLOGICAL: Left knee: There is no swelling on appearance of the left knee. There is no warmth or erythema or skin changes. She is Tender to palpation. She is got tenderness with range of motion. She states she has had tenderness of range of motion over the past year which is been gradually getting worse. Distal calf is nontender. Distal tib-fib is no skin changes. Left foot: Patient is a small abrasion to the first webspace that she says is from her dog. There is no obvious pus drainage or fluctuance. There is no a sending lymphatic streaks. PSYCH: Normal mood, normal affect. SKIN: Warm, Dry, normal turgor, no rashes or lesions noted. Course - Re-evaluation Re-evalutation: 03/25/18 16:20 I have had a long conversation with the patient. She has had a long history of left knee pain and has had one round of physical therapy. She has been seen for this in the past. X-rays show no bony injury. Clinically, the patient has no obvious signs of infection or swelling of the left knee. I did recommend she follow-up with her primary care doctor for an outpatient MRI. I recommended she follow-up with the primary care doctor tomorrow. Incidentally, she did get a small dog bite to the first webspace of the left foot. On reassessment, there is no evidence of infection. She was placed on prophylactic Augmentin and was given a tetanus shot in the ER yesterday. She states that she is not been able to get to the pharmacy today, so she was given Augmentin in the ER that would cover her for today. - Vital Signs Vital signs: Temp Pulse Resp BP Pulse Ox 98.4 F 93 16 109/73 98 03/25/18 13:59 03/25/18 13:59 03/25/18 13:59 03/25/18 13:59 03/25/18 13:59 - Diagnostic Test Radiology reviewed: Image reviewed, Reports reviewed - X-rays show no obvious bony injury Doctor's Discharge - Discharge Clinical Impression: Left knee pain Condition: Stable Disposition: HOME, SELF-CARE Additional Instructions: As we discussed, the x-rays show no bone pathology to the left knee. However, I do want you to follow-up with your primary care doctor for an outpatient MRI of the knee. I do recommend you follow-up also with an orthopedic surgeon (up with the name of one on the chart). Ambulate for crutches for symptomatic relief. Light duty at work for the next week. Return to the emergency room if the knee becomes red, hot, swollen or if you start getting fever (temperature 100.5) or increased pain. In regards to the dog bite you got yesterday: I do not see any significant infection at this point, so I do want you to certainly take those prophylactic antibiotics. Follow-up with your primary care doctor tomorrow. Forms: Special Work Note
--- NOTE | 2018-03-25 15:44 | RADIOLOGY REPORT (SQ) ---
EXAM DESCRIPTION: KNEE LEFT 3 VIEWS COMPLETED DATE/TIME: 03/25/2018 3:15 pm REASON FOR STUDY: left knee pain COMPARISON: None. NUMBER OF VIEWS: Three views left knee to include AP, lateral and tangential patellofemoral. LIMITATIONS: None. FINDINGS: There is no acute or significant bone, joint or soft tissue abnormality. OTHER: No other significant finding. IMPRESSION: NORMAL STUDY. TECHNICAL DOCUMENTATION: JOB ID: [id number] Reading location - IP/workstation name: [email or web address]
[2018-03-25] MEDS ORDERED: HYDROCODONE/ACETAMINOPHEN 5-325 MG TABLET PO ONE (16:10)
[2018-03-25 16:32] VITALS: BP 120/74
== END 2018-03-25 16:30 | disposition home or self-care (01) ==
LOC: ER 13:47
DX: M25.562 Pain in left knee (principal); S90.872A Other superficial bite of left foot, initial encounter; W54.0XXA Bitten by dog, initial encounter; E10.9 Type 1 diabetes mellitus without complications
CPT/HCPCS: 99283; 73562; J3490 ×2

== ENCOUNTER 2018-07-03 09:15 | Emergency (ER) | payer BC, MEDICAID ==
[2018-07-03 09:28] VITALS: BP 113/69
--- NOTE | 2018-07-03 09:38 | ER Document Report ---
ED Medical Screen (RME) - General Chief Complaint: Abdominal Pain Stated Complaint: COUGH,SORE THROAT Time Seen by Provider: 07/03/18 09:32 Notes: RAPID MEDICAL EVALUATION DISCLOSURE I have seen this patient as part of a Rapid Medical Evaluation and, if applicable, placed any initially appropriate orders. The patient will be seen and fully evaluated, including a full history and physical exam, by a provider (in Main ED or Fast Track) when a room becomes available. 33-year-old female here with complaints of cough congestion runny nose sore throat ongoing for the past 1 month. She has been using essential oils which has helped some. Yesterday she started to develop some lower abdominal pressure and burning with urination consistent with her previous episodes of UTI. She tried taking Percocet and Pyridium for the pain. She denies any flank/back pain nausea vomiting fevers chills. EXAM CTAB RRR Mild suprapubic TTP No peritoneal signs TRAVEL OUTSIDE OF THE [place] IN LAST 30 DAYS: No - Related Data Allergies/Adverse Reactions: No Known Allergies Allergy (Verified 07/03/18 09:16) Past Medical History - Social History Family history: None Endocrine Medical History: Reports: Hx Diabetes Mellitus Type 1 Renal/ Medical History: Denies: Hx Peritoneal Dialysis Musculoskeltal Medical History: Reports Hx Arthritis Psychiatric Medical History: Reports: Hx Attention Deficit Hyperactivity Disorder Past Surgical History: Reports: Hx Appendectomy, Hx Section - x2, Hx Gynecologic Surgery - lap x2, Hx Oral Surgery, Hx Orthopedic Surgery - r foot, Hx Tonsillectomy - Immunizations Hx Diphtheria, Pertussis, Tetanus Vaccination: Yes Physical Exam - Vital signs Vitals: Temp Pulse Resp BP Pulse Ox 97.5 F 88 16 113/69 100 07/03/18 09:21 07/03/18 09:21 07/03/18 09:21 07/03/18 09:21 07/03/18 09:21 Course - Vital Signs Vital signs: Temp Pulse Resp BP Pulse Ox 97.5 F 88 16 113/69 100 07/03/18 09:21 07/03/18 09:21 07/03/18 09:21 07/03/18 09:21 07/03/18 09:21 Doctor's Discharge - Discharge Referrals: GINETTE MURCIA FNP [Primary Care Provider] - Follow up as needed
[2018-07-03 10:11] LABS: APPEARANCE,URINE TURBID; BILIRUBIN,URINE NEGATIVE (NEGATIVE); COLOR,URINE AMBER; GLUCOSE, URINE 50 mg/dL (NEGATIVE); KETONES,URINE NEGATIVE (NEGATIVE); LEUKOCYTE ESTERASE,URINE MODERATE (NEGATIVE); NITRITE,URINE POSITIVE (NEGATIVE); PROTEIN,URINE 100 mg/dL (NEGATIVE); URINE SPECIFIC GRAVITY 1.024
--- NOTE | 2018-07-03 10:36 | ER Document Report ---
ED General - General Chief Complaint: Abdominal Pain Stated Complaint: COUGH,SORE THROAT Time Seen by Provider: 07/03/18 09:32 Notes: 33-year-old female here with complaints of cough congestion runny nose sore throat ongoing for the past 1 month. She has been using essential oils which has helped some. Yesterday she started to develop some lower abdominal pressure and burning with urination consistent with her previous episodes of UTI. She tried taking Percocet and Pyridium for the pain. She denies any flank/back pain nausea vomiting fevers chills. TRAVEL OUTSIDE OF THE [place] IN LAST 30 DAYS: No - Related Data Allergies/Adverse Reactions: No Known Allergies Allergy (Verified 07/03/18 09:16) Past Medical History - Social History Smoking Status: Never Smoker Chew tobacco use (# tins/day): No Frequency of alcohol use: None Drug Abuse: None Family History: Reviewed & Not Pertinent, DM, Malignancy Patient has suicidal ideation: No Patient has homicidal ideation: No Endocrine Medical History: Reports: Hx Diabetes Mellitus Type 1 Renal/ Medical History: Denies: Hx Peritoneal Dialysis Musculoskeletal Medical History: Reports Hx Arthritis Psychiatric Medical History: Reports: Hx Attention Deficit Hyperactivity Disorder Past Surgical History: Reports: Hx Appendectomy, Hx Section - x2, Hx Gynecologic Surgery - lap x2, Hx Oral Surgery, Hx Orthopedic Surgery - r foot, Hx Tonsillectomy - Immunizations Hx Diphtheria, Pertussis, Tetanus Vaccination: Yes Review of Systems - Review of Systems Notes: See history of present illness for pertinent positive review of systems; otherwise all review of systems have been reviewed and are negative Physical Exam - Vital signs Vitals: Temp Pulse Resp BP Pulse Ox 97.5 F 88 16 113/69 100 07/03/18 09:21 07/03/18 09:21 07/03/18 09:21 07/03/18 09:21 07/03/18 09:21 - Notes Notes: PHYSICAL EXAMINATION: GENERAL: Well-appearing and in no acute distress. HEAD: Atraumatic, normocephalic. EYES: Pupils equal round and reactive to light, extraocular movements intact, sclera anicteric, conjunctiva are normal. ENT: nares patent, oropharynx minimal erythema without tonsillar swelling exudates. Moist mucous membranes. NECK: Normal range of motion, supple without lymphadenopathy LUNGS: CTAB and equal. No wheezes rales or rhonchi. HEART: Regular rate and rhythm without murmurs ABDOMEN: Soft, mild suprapubic tenderness. No facial grimacing/wincing upon palpation. No guarding, no rebound. EXTREMITIES: Normal range of motion, no pitting edema. No cyanosis. NEUROLOGICAL: Cranial nerves grossly intact. Normal sensory/motor exams. PSYCH: Normal mood, normal affect. SKIN: Warm, Dry, normal turgor, no rashes or lesions noted Course - Re-evaluation Re-evalutation: 07/03/18 10:34 MEDICAL DECISION MAKING: Concern for upper respiratory infection, most likely viral Her urinalysis is concerning for UTI so will prescribe Augmentin for both UTI and URI Instructed patient on fever control with Tylenol and/or (if applicable) Motrin Also discussed keeping hydrated with water or Gatorade/Pedialyte Instructed follow-up PCP next day or few Patient understands and agrees to the plan of care - Vital Signs Vital signs: Temp Pulse Resp BP Pulse Ox 97.5 F 88 16 113/69 100 07/03/18 09:21 07/03/18 09:21 07/03/18 09:21 07/03/18 09:21 07/03/18 09:21 - Laboratory Laboratory results interpreted by me: 07/03/18 09:25 Urine Protein 100 H Urine Glucose (UA) 50 H Urine Blood LARGE H Urine Nitrite POSITIVE H Urine Urobilinogen 4.0 H Ur Leukocyte Esterase MODERATE H Discharge - Discharge Clinical Impression: URI, acute UTI (urinary tract infection) Qualifiers: Urinary tract infection type: site unspecified Hematuria presence: with hematuria Qualified Code(s): N39.0 - Urinary tract infection, site not specified; R31.9 - Hematuria, unspecified Condition: Good Disposition: HOME, SELF-CARE Additional Instructions: Finish the antibiotics prescribed for both UTI and upper respiratory infection. Use the cough medication as well on an as-needed basis. You were seen in the emergency department at [facility]. If you were given any sedating medications, be sure not to operate heavy machinery (example - driving) and be sure you are not too sedated to walk appropriately. Please followup with your primary physician in the next few days for further management/evaluation. Please return to the emergency department for worsening of symptoms or any symptom that you deem to be concerning or life-threatening. Thank you for allowing us to be part of your care. Prescriptions: Benzonatate [Tessalon Perles 100 mg Capsule] 100 mg PO Q8HP PRN #40 capsule PRN Reason: Amox Tr/Potassium Clavulanate [Augmentin 875-125 Tablet] 1 tab PO BID 10 Days tablet Referrals: GINETTE MURCIA FNP [Primary Care Provider] - Follow up as needed
== END 2018-07-03 10:58 | disposition home or self-care (01) ==
LOC: ER 09:15
DX: N39.0 Urinary tract infection, site not specified (principal); R31.9 Hematuria, unspecified; J06.9 Acute upper respiratory infection, unspecified; E10.9 Type 1 diabetes mellitus without complications
CPT/HCPCS: 81001; 81025; 87086; 87088; 87186; 99284

== ENCOUNTER 2018-10-02 19:43 | Emergency (ER) | payer BC, OTHER ==
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
[2018-10-02] MEDS ORDERED: ACETAMINOPHEN 325 MG TABLET PO ONE (22:57)
[2018-10-02 23:09] VITALS: BP 115/66
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
== END 2018-10-02 23:11 | disposition home or self-care (01) ==
LOC: ER 19:43
DX: M79.671 Pain in right foot (principal); M25.531 Pain in right wrist; X50.0XXA Overexertion from strenuous movement or load, initial encounter; Y92.009 Unspecified place in unspecified non-institutional (private) residence as the place of occurrence of the external cause; E10.39 Type 1 diabetes mellitus with other diabetic ophthalmic complication
CPT/HCPCS: 99283

== ENCOUNTER 2018-12-27 09:02 | Emergency (ER) | payer BC, OTHER ==
[2018-12-27 09:09] VITALS: BP 114/75
[2018-12-27] MEDS ORDERED: PHENAZOPYRIDINE HCL 200 MG TABLET PO ONE (09:29)
--- NOTE | 2018-12-27 09:34 | ER Document Report ---
ED GI/ - General Chief Complaint: Urinary Problem Stated Complaint: UTI SYMPTOMS Time Seen by Provider: 12/27/18 09:29 Primary Care Provider: GINETTE MURCIA FNP [Primary Care Provider] - Follow up as needed Mode of Arrival: Ambulatory Information source: Patient Notes: 33-year-old female presents to ED for bladder spasms, pelvic pain, burning with urination the last several days. She states she has had similar pelvic pain in the past and been to her primary doctor now she is waiting for surgical consult to determine the cause of the pelvic pain she is already had a transvaginal ultrasound and did not show any cause for the pain. She is a diabetic type I hypothyroid has had her tonsils removed and appendectomy x2 bone removed from the right foot diagnostic laparoscopies multiple removal of scar with one laparoscopy and neck surgery for slipped disc. 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 Patient is alert oriented respirations regular and unlabored speaking in full sentences walks with a even steady gait. TRAVEL OUTSIDE OF THE [place] IN LAST 30 DAYS: No - HPI Patient complains to provider of: Pelvic pain, Vaginal pain, Other Onset: Other - Urinary symptoms several days Timing/Duration: Gradual Quality of pain: Burning, Pressure Severity at maximum: Moderate Severity in ED: Moderate Pain Level: 3 Location: Pelvis Vaginal bleeding (Compared to normal period): None Associated symptoms: Urinary frequency, Urinary urgency, Other - Burning with urination and bladder spasms pelvic pain Exacerbated by: Walking - urination, Other Relieved by: Denies Similar symptoms previously: Yes Recently seen / treated by doctor: Yes - Related Data Allergies/Adverse Reactions: No Known Allergies Allergy (Verified 10/02/18 19:47) Past Medical History - General Information source: Patient - Social History Smoking Status: Never Smoker Cigarette use (# per day): No Chew tobacco use (# tins/day): No Smoking Education Provided: No Frequency of alcohol use: Rare Drug Abuse: None 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 Lives with: Family Family History: Reviewed & Not Pertinent, DM, Malignancy Patient has suicidal ideation: No Patient has homicidal ideation: No - Past Medical History Cardiac Medical History: Reports: None Pulmonary Medical History: Reports: None EENT Medical History: Reports: None Neurological Medical History: Reports: None Endocrine Medical History: Reports: Hx Diabetes Mellitus Type 1, Hx Hypothyroidism Renal/ Medical History: Reports: None Malignancy Medical History: Reports: None GI Medical History: Reports: None Musculoskeletal Medical History: Reports Hx Arthritis Skin Medical History: Reports None Psychiatric Medical History: Reports: Hx Attention Deficit Hyperactivity Disorder Traumatic Medical History: Reports: None Infectious Medical History: Reports: None Past Surgical History: Reports: Hx Appendectomy, Hx Section - x2, Hx Gynecologic Surgery - lap x2, Hx Oral Surgery, Hx Orthopedic Surgery - r foot, Hx Tonsillectomy - Immunizations Hx Diphtheria, Pertussis, Tetanus Vaccination: Yes Review of Systems - Review of Systems Constitutional: No symptoms reported EENT: No symptoms reported Cardiovascular: No symptoms reported Respiratory: No symptoms reported Gastrointestinal: No symptoms reported Genitourinary: No symptoms reported, Burning, Frequency, Pain, Urgency Female Genitourinary: No symptoms reported Musculoskeletal: No symptoms reported Skin: No symptoms reported Hematologic/Lymphatic: No symptoms reported Neurological/Psychological: No symptoms reported -: Yes All other systems reviewed and negative Physical Exam - Vital signs Vitals: Temp Pulse Resp BP Pulse Ox 97.7 F 96 16 114/75 99 12/27/18 09:06 12/27/18 09:06 12/27/18 09:06 12/27/18 09:06 12/27/18 09:06 Interpretation: Normal - General General appearance: Appears well, Alert - HEENT Head: Normocephalic, Atraumatic Eyes: Normal Pupils: PERRL - Respiratory Respiratory status: No respiratory distress Chest status: Nontender Breath sounds: Normal Chest palpation: Normal - Cardiovascular Rhythm: Regular Heart sounds: Normal auscultation Murmur: No - Abdominal Inspection: Normal Distension: No distension Bowel sounds: Normal Tenderness: Tender - Lower abdomen more to the left Organomegaly: No organomegaly - Back Back: Normal, Nontender - Extremities General upper extremity: Normal inspection, Nontender, Normal color, Normal ROM, Normal temperature General lower extremity: Normal inspection, Nontender, Normal color, Normal ROM, Normal temperature, Normal weight bearing. No: Bharati's sign - Neurological Neuro grossly intact: Yes Cognition: Normal Orientation: AAOx4 Frieda Coma Scale Eye Opening: Spontaneous Nevis Coma Scale Verbal: Oriented Frieda Coma Scale Motor: Obeys Commands Frieda Coma Scale Total: 15 Speech: Normal Motor strength normal: LUE, RUE, LLE, RLE Sensory: Normal - Psychological Associated symptoms: Normal affect, Normal mood - Skin Skin Temperature: Warm Skin Moisture: Dry Skin Color: Normal Course - Re-evaluation Re-evalutation: 12/27/18 10:38 Discussed the results of the urine with patient and written reports given to patient. Patient was instructed to follow-up with her primary doctor tomorrow to reevaluate her insulin and the effects is having when she works. Patient verbalized understanding and agreement with treatment plan patient was discharged home. Patient does not have a UTI. - Vital Signs Vital signs: Temp Pulse Resp BP Pulse Ox 97.7 F 96 16 114/75 99 12/27/18 09:06 12/27/18 09:06 12/27/18 09:06 12/27/18 09:06 12/27/18 09:06 - Laboratory Laboratory results interpreted by me: 12/27/18 09:40 Urine Glucose (UA) >=500 H Ur Leukocyte Esterase TRACE H Urine Ascorbic Acid 20 H Discharge - Discharge Clinical Impression: Pain with urination Condition: Stable Disposition: HOME, SELF-CARE Additional Instructions: You were seen today for pain with urination. You do not have a urinary tract infection at this time. There is too much sugar in your urine which will irritate your bladder. You need to drink more water and to take your insulin to reduce the amount of sugar you are spilling in your bladder. Come salt your doctor tomorrow to figure out a way to control your sugar while you are working so that she will not bottom out. Urinary Anesthetic Agent You have been given a medication for urinary tract discomfort. This medicine numbs the lining of the bladder and urethra, resulting in less pain, burning, and urgency. You may take it as needed, according to instructions. When the symptoms resolve, you can stop this medication (be sure to continue any other medications the doctor has given you). This medicine turns the urine a dark orange. It may stain underwear. Occasionally, it can cause nausea. Return for evaluation if there are any unexpected effects, such as itching, hives, or shortness of breath. FOLLOW-UP CARE: If you have been referred to a physician for follow-up care, call the physicians office for an appointment as you were instructed or within the next two days. If you experience worsening or a significant change in your symptoms, notify the physician immediately or return to the Emergency Department at any time for re-evaluation. Prescriptions: Phenazopyridine HCl [Pyridium 200 mg Tablet] 200 mg PO TID #15 tablet Forms: Return to Work Referrals: GINETTE MURCIA FNP [Primary Care Provider] - Follow up tomorrow
[2018-12-27 09:54] LABS: APPEARANCE,URINE CLEAR; BILIRUBIN,URINE NEGATIVE (NEGATIVE); COLOR,URINE STRAW; GLUCOSE, URINE >=500 mg/dL (NEGATIVE); KETONES,URINE NEGATIVE (NEGATIVE); LEUKOCYTE ESTERASE,URINE TRACE (NEGATIVE); NITRITE,URINE NEGATIVE (NEGATIVE); PROTEIN,URINE NEGATIVE (NEGATIVE); URINE SPECIFIC GRAVITY 1.009; UROBILINOGEN,URINE NEGATIVE mg/dL (<2.0)
== END 2018-12-27 10:40 | disposition home or self-care (01) ==
LOC: ER 09:02
DX: R30.0 Dysuria (principal); R10.2 Pelvic and perineal pain; R35.0 Frequency of micturition; E10.9 Type 1 diabetes mellitus without complications; E03.9 Hypothyroidism, unspecified
CPT/HCPCS: 99283; 87086; 82962; 81025; 81001; J3490

== ENCOUNTER 2019-09-18 13:49 | Emergency (ER) | payer OTHER, MEDICAID ==
[2019-09-18] MEDS ORDERED: DIPHENHYDRAMINE HCL 50 MG/ML VIAL IV ONE (14:05)
[2019-09-18] MEDS ORDERED: NORMAL SALINE 1000 ML 1,000 ML IV ONE (14:05)
[2019-09-18] MEDS ORDERED: METOCLOPRAMIDE HCL INJ/PF 10 MG/2 ML SDV IV ONE (14:05)
--- NOTE | 2019-09-18 14:08 | ER Document Report ---
ED Medical Screen (RME) - General Chief Complaint: Eye Problem Stated Complaint: RIGHT EYE VISION BLURRY/FACIAL PRESSURE Time Seen by Provider: 09/18/19 13:59 Primary Care Provider: JUAN LUIS GARRIDO PA [Primary Care Provider] - Follow up as needed Notes: Patient is a 34-year-old insulin-dependent diabetic female who presents the emergency department with a chief complaint of right eye pressure. Patient states that she has had her symptoms for the past 3 days and feels as if there is pressure behind her eye. Patient had similar symptoms when she had a headache before. She also states that she sees "floaters." Last night she also had an "allergy attack" and took Benadryl. It helped her allergy symptoms go away, but she continues to have pressure behind her eye. Exam: Pupils PERRLA. I have greeted and performed a rapid initial assessment of this patient. A comprehensive ED assessment and evaluation of the patient, analysis of test results and completion of medical decision making process will be conducted by an additional ED providers. TRAVEL OUTSIDE OF THE [place] IN LAST 30 DAYS: No - Related Data Allergies/Adverse Reactions: No Known Allergies Allergy (Verified 10/02/18 19:47) Past Medical History - Social History Family history: None Endocrine Medical History: Reports: Hx Diabetes Mellitus Type 1, Hx Hypothyroidism Renal/ Medical History: Denies: Hx Peritoneal Dialysis Musculoskeltal Medical History: Reports Hx Arthritis Psychiatric Medical History: Reports: Hx Attention Deficit Hyperactivity Disorder Past Surgical History: Reports: Hx Appendectomy, Hx Section - x2, Hx Gynecologic Surgery - lap x2, Hx Oral Surgery, Hx Orthopedic Surgery - r foot, Hx Tonsillectomy - Immunizations Hx Diphtheria, Pertussis, Tetanus Vaccination: Yes Physical Exam - Vital signs Vitals: Temp Pulse Resp BP Pulse Ox 97.9 F 99 18 123/76 100 09/18/19 13:51 09/18/19 13:51 09/18/19 13:51 09/18/19 13:51 09/18/19 13:51 Course - Vital Signs Vital signs: Temp Pulse Resp BP Pulse Ox 97.9 F 99 18 123/76 100 09/18/19 13:51 09/18/19 13:51 09/18/19 13:51 09/18/19 13:51 09/18/19 13:51 Doctor's Discharge - Discharge Referrals: JUAN LUIS GARRIDO PA [Primary Care Provider] - Follow up as needed
[2019-09-18] MEDS ORDERED: TETRACAINE HCL 0.5% OPH SOLN 4 ML OU ONE (14:43)
[2019-09-18 15:11] LABS: ABSOLUTE LYMPHOCYTES (AUTO) 0.6 10^3/uL (0.5-4.7); ABSOLUTE MONOCYTES (AUTO) 0.2 10^3/uL (0.1-1.4); ABSOLUTE NEUT (AUTO) 1.6 10^3/uL (1.7-8.2); BASOPHILS % (AUTO) 0.5 % (0-2); EOSINOPHILS % (AUTO) 1.7 % (0-6); HEMOGLOBIN 13.4 g/dL (12.0-15.5); LYMPHOCYTES % (AUTO) 25.7 % (13-45); MEAN CORPUSCULAR HEMOGLOBIN 30.4 pg (27.0-33.4); MEAN CORPUSCULAR HGB CONC 34.4 g/dL (32.0-36.0); MEAN CORPUSCULAR VOLUME 89 fl (80-97); MONOCYTES % (AUTO) 6.3 % (3-13); PLATELET COUNT 110 10^3/uL (150-450); RED BLOOD COUNT 4.41 10^6/uL (3.72-5.28); RED CELL DISTRIBUTION WIDTH 14.4 % (11.5-14.0); TOTAL CELLS COUNTED % (AUTO) 100 %; WHITE BLOOD COUNT 2.5 10^3/uL (4.0-10.5)
[2019-09-18 15:12] LABS: SEGMENTED NEUTROPHILS % (AUTO) 65.8 % (42-78)
[2019-09-18 15:20] LABS: APPEARANCE,URINE SLIGHTLY-CLOUDY; BILIRUBIN,URINE NEGATIVE (NEGATIVE); COLOR,URINE YELLOW; GLUCOSE, URINE >=500 mg/dL (NEGATIVE); KETONES,URINE NEGATIVE (NEGATIVE); LEUKOCYTE ESTERASE,URINE NEGATIVE (NEGATIVE); NITRITE,URINE NEGATIVE (NEGATIVE); PROTEIN,URINE 100 mg/dL (NEGATIVE); URINE SPECIFIC GRAVITY 1.021; UROBILINOGEN,URINE NEGATIVE mg/dL (<2.0)
--- NOTE | 2019-09-18 15:27 | ER Document Report ---
ED Eye Complaint - General Chief Complaint: Headache Stated Complaint: RIGHT EYE VISION BLURRY/FACIAL PRESSURE Time Seen by Provider: 09/18/19 13:59 Primary Care Provider: JUAN LUIS GARRIDO PA [Primary Care Provider] - Follow up tomorrow CLARE GRESHAM MD [NO LOCAL MD] - Follow up in 3-5 days Notes: Patient is a 34-year-old insulin-dependent diabetic female who presents the emergency department with a chief complaint of right eye pressure. Patient states that she has had her symptoms for the past 3 days and feels as if there is pressure behind her eye. Patient had similar symptoms when she had a headache before. She also states that she sees "floaters." Last night she also had an "allergy attack" and took Benadryl. It helped her allergy symptoms go away, but she continues to have pressure behind her eye. TRAVEL OUTSIDE OF THE [place] IN LAST 30 DAYS: No - Related Data Allergies/Adverse Reactions: No Known Allergies Allergy (Verified 10/02/18 19:47) Home Medications: Humalog for insulin pump. lisinopril. adderal Past Medical History - Social History Smoking Status: Never Smoker Chew tobacco use (# tins/day): No Frequency of alcohol use: Rare Drug Abuse: None Family History: Reviewed & Not Pertinent, DM, Malignancy Patient has suicidal ideation: No Patient has homicidal ideation: No Endocrine Medical History: Reports: Hx Diabetes Mellitus Type 1, Hx Hypothy roidism Renal/ Medical History: Denies: Hx Peritoneal Dialysis Musculoskeletal Medical History: Reports Hx Arthritis Psychiatric Medical History: Reports: Hx Attention Deficit Hyperactivity Disorder Past Surgical History: Reports: Hx Appendectomy, Hx Section - x2, Hx Gynecologic Surgery - lap x2, Hx Oral Surgery, Hx Orthopedic Surgery - r foot, Hx Tonsillectomy - Immunizations Hx Diphtheria, Pertussis, Tetanus Vaccination: Yes Review of Systems - Review of Systems Notes: REVIEW OF SYSTEMS: CONSTITUTIONAL : Denies recent illness. Denies recent unintentional weight loss. Denies fever, chills, or sweats. EENT: Denies ear, throat, or mouth pain, discharge, or symptoms. See HPI. CARDIOVASCULAR: Denies chest pain. RESPIRATORY: Denies shortness of breath, cough, congestion, difficulty breathing, or wheezing. GASTROINTESTINAL: Denies nausea, vomiting, and diarrhea. Denies abdominal pain. Denies constipation. GENITOURINARY: Denies difficulty urinating, burning, blood in urine, urgency or frequency. MUSCULOSKELETAL: Denies neck and back pain. Denies joint pain or swelling. SKIN: Denies rash, itchiness, or lesions HEMATOLOGIC : Denies easy bruising or bleeding. LYMPHATIC: Denies swollen, painful, enlarged glands. NEUROLOGICAL: Denies no numbness or tingling denies weakness. Denies headache. Denies altered mental status. Denies alteration in speech. PSYCHIATRIC: Denies stress, anxiety, alteration in sleep patterns, or depression. All other systems reviewed and negative. Physical Exam - Vital signs Vitals: Temp Pulse Resp BP Pulse Ox 97.9 F 99 18 123/76 100 09/18/19 13:51 09/18/19 13:51 09/18/19 13:51 09/18/19 13:51 09/18/19 13:51 - Notes Notes: PHYSICAL EXAMINATION: GENERAL: Appears well, healthy, well-nourished, no acute distress. HEAD: Normocephalic, atraumatic. EYES: PERRL, conjunctiva normal, all extraocular movements intact, sclera nonicteric ENT: Moist mucous membranes. NECK: Supple, no noticeable swelling, redness, rash. Normal range of motion. LUNGS: Equal breath sounds bilaterally and clear to auscultation. No wheezes rales or rhonchi. CARDIOVASCULAR: S1-S2, regular rate, regular rhythm. Radial pulses 2+, normal. ABDOMEN: Normoactive bowel sounds. Soft, nontender, no guarding, no rebound tenderness, and no masses palpated. EXTREMITIES: Normal strength and range of motion, no pitting or edema. No cyanosis. NEUROLOGICAL: Moves all extremities upon command. Strength 5/5 in all extremities. PSYCH: Normal mood, normal affect. SKIN: Warm, dry. No rash, lesions, ulcerations noted. Normal skin turgor. Course - Re-evaluation Re-evalutation: 09/18/19 15:30 Ocular pressures at this time via the Nuno-Pen are 16, 16, and 14. 09/18/19 16:38 Patient states that she feels better after receiving a liter of fluid, Reglan, and Benadryl. I had a lengthy conversation with the patient in regards to her blood sugars. Patient admits that her blood sugars have not been under control because she has not checked her blood sugar and she does not check it frequently. I explained to the patient that it is important for her to check her blood sugar on a regular basis. She is followed by Dr. Gresham, through [facility]. Patient states that she also has not been to the eye doctor in over a year. I advised that she follow-up with the fruit rancher in regards to her vision. She is in agreement with this plan. I have a very low suspicion for an intracranial hemorrhage, post orbital cellulitis, or any life- threatening etiology at this time. Patient states that her blurred vision is clearing up. Follow-up precautions were given. Verbal discharge instructions were given to the patient. They verbalized understanding. They are stable for discharge. - Vital Signs Vital signs: Temp Pulse Resp BP Pulse Ox 97.7 F 86 18 129/77 H 98 09/18/19 16:56 09/18/19 16:56 09/18/19 16:56 09/18/19 16:56 09/18/19 16:56 - Laboratory Result Diagrams: 09/18/19 14:57 09/18/19 14:57 Laboratory results interpreted by me: 09/18/19 09/18/19 09/18/19 14:43 14:44 14:57 WBC 2.5 L RDW 14.4 H Plt Count 110 L Absolute Neuts (auto) 1.6 L Sodium Glucose POC Glucose 251 H Hemoglobin A1c % AST ALT Alkaline Phosphatase Total Protein Urine Protein 100 H Urine Glucose (UA) >=500 H Urine Blood SMALL H Urine Ascorbic Acid 40 H 09/18/19 09/18/19 14:57 14:57 WBC RDW Plt Count Absolute Neuts (auto) Sodium 136.4 L Glucose 255 H POC Glucose Hemoglobin A1c % 9.4 H AST 302 H ALT 323 H Alkaline Phosphatase 282 H Total Protein 8.7 H Urine Protein Urine Glucose (UA) Urine Blood Urine Ascorbic Acid Discharge - Discharge Clinical Impression: Blurred vision, right eye, Elevated liver enzymes, Dehydration, Hyperglycemia due to type 1 diabetes mellitus, Elevated hemoglobin A1c Headache Qualifiers: Headache type: unspecified Headache chronicity pattern: acute headache Intractability: not intractable Qualified Code(s): R51 - Headache Condition: Stable Disposition: HOME, SELF-CARE Additional Instructions: You were seen today in the emergency department for blurred vision. Your intraocular pressures are normal. 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 Your blood sugars are elevated here in the emergency department. Make sure you are taking your insulin as prescribed and make sure you are checking your blood sugars. See if you are able to get a meter that has continuous reading, or prickless monitoring. Please also see the eye doctor, as your vision may have changed. Your liver enzymes were also elevated. Please have those monitored when you see your primary care provider again. Also, make sure you are drinking plenty of water. Referrals: CLARE GRESHAM MD [NO LOCAL MD] - Follow up in 3-5 days JUAN LUIS GARRIDO PA [Primary Care Provider] - Follow up tomorrow
[2019-09-18 15:35] LABS: ALKALINE PHOSPHATASE 282 U/L (38-126); ANION GAP 6 (5-19); ASPARTATE AMINO TRANSFERASE 302 U/L (14-36); BILIRUBIN,DIRECT 0.3 mg/dL (0.0-0.4); BILIRUBIN,TOTAL 0.8 mg/dL (0.2-1.3); BLOOD UREA NITROGEN 18 mg/dL (7-20); CALCIUM 9.2 mg/dL (8.4-10.2); CARBON DIOXIDE 28 mmol/L (22-30); CHLORIDE 102 mmol/L (98-107); GLUCOSE 255 mg/dL (75-110); POTASSIUM 4.2 mmol/L (3.6-5.0); TOTAL PROTEIN 8.7 g/dL (6.3-8.2)
[2019-09-18 16:57] VITALS: BP 129/77
== END 2019-09-18 17:11 | disposition home or self-care (01) ==
LOC: ER 13:49
DX: R51 Headache (principal); H53.8 Other visual disturbances; E10.65 Type 1 diabetes mellitus with hyperglycemia; Z96.41 Presence of insulin pump (external) (internal); Z79.4 Long term (current) use of insulin; E86.0 Dehydration; R74.8 Abnormal levels of other serum enzymes; F90.9 Attention-deficit hyperactivity disorder, unspecified type; Z79.899 Other long term (current) drug therapy
CPT/HCPCS: 99284; 96361; 96374; 96375; 36415; 82962; 85025; 80053; 81001; 83036; J1200; J2765; J7030; J3490